=== PATIENT | male | born 1975 | race American Indian/Alaskan Native ===

== ENCOUNTER 2020-08-30 12:39 | Emergency (ER) | payer SELFPAY ==
--- NOTE | 2020-08-30 12:44 | Event Note ---
ED Screening Note ED Screening Note: PD brings pt to ER They were called to [facility] where pt was agitated and hyperverbal/active Cuffed on arrival Responding to internal commands and talking to people not present wants to kill "sub humans" reads peoples minds by looking in their eyes hx schizoaffective disorder Has unknown hosp armband on his left wrist This initial assessment/diagnostic orders/clinical plan/treatment(s) is/are subject to change based on patients health status, clinical progression and re- assessment by fellow clinical providers in the ED. Further treatment and workup at subsequent clinical providers discretion. Patient/guardian urged not to elope from the ED as their condition may be serious if not clinically assessed and managed. Initial orders include: 1013 [facility]
[2020-08-30 12:51] VITALS: BP 127/65
== END 2020-08-30 13:47 ==
LOC: ED 12:39
DX: F25.9 Schizoaffective disorder, unspecified (principal)
CPT/HCPCS: 99282